=== PATIENT | female | born 1945 | race Caucasian/White ===

== ENCOUNTER 2020-09-21 00:41 | Observation (INO) | payer MEDICARE, OTHER ==
[~2020-09-21] VITALS: Ht 154.9 cm; Wt 58.7 kg
[~2020-09-21 00:41] MED LIST: ERGO400 PO; GLYCPS PR
[2020-09-21 01:07] LABS: BASOPHILS ABSOLUTE AUTO 0.05 K/mm3 (0.00-0.23); BASOPHILS PERCENT AUTO 0 % (0-2); EOSINOPHILS ABSOLUTE AUTO 0.06 K/mm3 (0.00-0.68); EOSINOPHILS PERCENT AUTO 1 % (0-6); Hematocrit 36.2 % (33.0-51.0); Hemoglobin 11.8 g/dL (11.5-16.0); IMMATURE GRAN ABSOLUTE AUTO 0.09 K/mm3 (0.00-0.10); IMMATURE GRAN PERCENT AUTO 1 % (0-1); LYMPHOCYTES PERCENT AUTO 6 % (21-46); MONOCYTES PERCENT AUTO 3 % (4-13); Mean Corpuscular HGB 29.6 pg (26.0-34.0); Mean Corpuscular HGB Conc 32.6 g/dL (31.5-36.5); Mean Corpuscular Volume 91 fL (80-100); Mean Platelet Volume 9.4 fL (9.1-12.4); NEUTROPHILS ABSOLUTE AUTO 10.55 K/mm3 (1.96-9.15); NEUTROPHILS PERCENT AUTO 89 % (41-73); Platelet Count 330 K/mm3 (150-400); RDW Standard Deviation 47.5 fL (35.1-46.3); Red Blood Cell Count 3.99 M/mm3 (3.80-5.20); White Blood Cell Count 11.85 K/mm3 (4.00-11.30)
[2020-09-21 01:30] LABS: Alanine Aminotransfer (ALT/SGP 20 U/L (12-78); Albumin, Blood 3.6 g/dL (3.4-5.0); Albumin/Globulin Ratio 1.2 (0.8-1.8); Alk Phos 39 U/L (50-136); Anion Gap 8 mmol/L (6-16); Aspartate Aminotrans (AST/SGOT 22 U/L (12-37); Blood Urea Nitrogen 16 mg/dL (8-24); Bun/Creatinine Ratio 22.3 (12.0-20.0); CO2, Blood 26 mmol/L (21-32); Chloride, Blood 106 mmol/L (98-108); Creatinine, Blood 0.72 mg/dL (0.40-1.00); Glomerular Filtration Rate >60 (60-); Glucose, Blood 152 mg/dL (70-99); Potassium, Blood 3.4 mmol/L (3.5-5.5); Sodium, Blood 140 mmol/L (136-145); Total Protein, Blood 6.6 g/dL (6.4-8.2); Troponin I <0.015 ng/mL (0.000-0.040)
[2020-09-21] MEDS ORDERED: THERA-D2000 UNIT PO (04:05)
[2020-09-21] MEDS ORDERED: Vitamin C100 M1 PO (04:06)
[2020-09-21] MEDS ORDERED: CYAN500 PO (04:06)
[2020-09-21] MEDS ORDERED: B-100 COMPLEX100 MG PO (04:07)
--- NOTE | 2020-09-21 04:30 | NUR ---
PT ADMITTED TO ROOM ICU 4 FROM EMERGENCY DEPARTMENT. ARRIVES AT 0340. SLIDE TRANSFERRED TO BED FROM [facility]. PT MAIN COMPLAINT IS THE HEMATOMA TO THE BACK OF HER HEAD SECONDARY TO HER FALL AT HOME. ALSO NECK AND BACK PAIN ASSOCIATED WITH FALL. PT IN SINUS RHYTHM WITHOUT NOTED ECTOPY. OF NOTE: ED PHYSICIAN HAS SPOKEN TO [employer] OPERATOR HELPER [employer] II ASSEMBLER. WILL PLACE CALL TO ANSWERING SERVICE. WILL REVIEW CHART AND PLAN OF CARE FOR THIS PT.
--- NOTE | 2020-09-21 06:33 | NUR ---
PT HAS NOT HAD ANY CARDIAC PAUSES OR BRADYCARDIA SINCE ADMIT. DID MEDICATE PT WITH 25 MCG FENTANYL FOR COMPLAINTS OF PAIN AT OCCIPITAL ASPECT OF HEAD, NECK AND SHOULDER PAIN FROM HER FALL AT HOME. NO COMPLAINTS OF NAUSEA. WAS ABLE TO TAKE HER PO POTASSIUM WITHOUT GI UPSET. HAS BEEN SLEEPING SINCE AFTER ADMISSION QUESTIONARE WAS COMPLETED. PT GOOD HISTORIAN. WILL CONTINUE TO MONITOR PT, AND WILL REPORT OFF TO ONCOMING RN.
--- NOTE | 2020-09-21 06:39 | NUR ---
PT STATED THAT SHE HAD RECEIVED HER SECOND DOSE OF COVID VACCINE ON 09-20-2020 AT 0800. PT STATED THAT SHE STARTED FEELING ILL JUST AFTERWARDS WHICH HAS LED HER TO HAVING TO COME TO THE HOSPITAL.
--- NOTE | 2020-09-21 07:30 | NUR ---
ASSUMED CARE OF PT AT THIS TIME. PT ALERT AND ORIENTED. NO EVIDENCE OF BRADYCARDIA AT THIS TIME. PT C/O NECK AND SHOULDER PAIN, REPOSITIONED FOR COMFORT. PT DENIES NEED FOR PAIN MEDICATION AT THIS TIME. DR ACEVEDO AT BEDSIDE, PLAN TO MONITOR PT FOR 24 HRS. NO PLAN FOR PACER PLACEMENT. WILL ENCOURAGE AMBULATION WITH STAND BY ASSIST. VSS. SEE SHIFT ASSESSMENT
[2020-09-21 08:36] LABS: Influenza A, PCR NEGATIVE (NEGATIVE); Influenza B, PCR NEGATIVE (NEGATIVE); Resp Syncytial Virus, PCR NEGATIVE (NEGATIVE); SARS-Cov-2 (COVID-19) PCR, MMC NEGATIVE (NEGATIVE)
--- NOTE | 2020-09-21 10:45 | NUR ---
DR MCKENZIE AT BEDSIDE. AFTER EVALUATION, DECIDED PT IS APPROPRIATE TO BE TRANSFERRED TO MEDICAL FLOOR FOR OBSERVATION. PT AND PT'S DAUGHTER UPDATED WITH PLAN OF CARE.
--- NOTE | 2020-09-21 13:00 | NUR ---
CARE COORDINATION REFERRAL - ADMIT: 09/21/20 DISCHARGE: DX: SYMPTOMATIC BRADYCARDIA CC: [facility] CALL: ([facility] 1-2 WEEKS) RESIDENCE: HOME CAREGIVER: FRANKI KENNY, CHILD, ELISE ALVARADO, CHILD, CLAIRE BROWN, FRIEND, DX: CAROTID ATHEROSCLEROSIS, HYPERLIPIDEMIA, VIT D DEFICIENCY, SEE LIST DME: NONE CCM: NONE HOME HEALTH: NONE SUMMARY: ADMIT: 09/21/20 09/21/20- PER CHART REVIEW WITH DR. MCKENZIE, PT IS DOING BETTER AND WILL BE MOVING TO THE MED/SURG FLOOR. FEEL THIS IS RELATED TO HER RECENT COVID VACCINE. SHE WILL BE STABLE FOR D/C ON THURSDAY.-MISSAEL
--- NOTE | 2020-09-21 14:55 | NUR ---
ASSUMED CARE REPORT RECEIVED FROM RADHA BRUNSON. PT SITTING UP IN CHAIR VISITING WITH DAUGHTER. HR NSR ON THE MONITOR. BP STABLE. PT DENIES ANY NEEDS AT THIS TIME. PT STATES HER NECK IS SORE AND THE BACK OF HER HEAD, BUT DENIES A NEED FOR ANY MEDICATION AT THIS TIME. CALL LIGHT IN REACH. WILL CONTINUE TO MONITOR CLOSELY.
--- NOTE | 2020-09-21 15:50 | NUR ---
THIS RN REVIEWED ALL MOTOR SCOOTER REPAIRER NOTES AND ASSESSMENTS AND AGREES WITH OBSERVATIONS
--- NOTE | 2020-09-21 16:54 | NUR ---
SHIFT SUMMARY PT ALERT AND ORIENTED. VS STABLE. HR REMAINS NSR. BP STABLE. PT CONTINUES TO COMPLAIN OF NECK AND BACK OF HEAD STIFFNESS, BUT DENIES A NEED FOR ANY MEDICATION. PT REPORTS PAIN HAS DECREASED SINCE SITTING UP IN RECLINER. PT ABLE TO AMBULATE TO COMMODE MULTIPLE TIMES THIS AFTERNOON WITHOUT ANY DIZZINESS AND MINIMAL ASSISTANCE. PT CALLING APPROPRIATELY. WILL CONTINUE TO MONITOR AND REPORT TO ONCOMING RN.
--- NOTE | 2020-09-21 18:10 | NUR ---
REPORT GIVEN TO ALTHEA BRUNSON. PT TO BE TAKEN UP BY HECTOR.
[2020-09-21 20:35] LABS: Source, Urine Clean Catch
[2020-09-21 20:39] LABS: Bilirubin, Urine Neg (Neg); Blood, Urine Neg (Neg); Glucose Qualitative, Urine Neg (Neg); Ketones, Urine Neg (Neg); Leukocyte Esterase, Urine 1+ (Neg); Nitrite, Urine Neg (Neg); Protein, Urine Neg (Neg); Specific Gravity, Urine 1.005 (1.003-1.022); Urobilinogen, Urine NORM (Normal)
[2020-09-21 20:55] LABS: Appearance, Urine Clear (Clear); Color, Urine Pale Yellow (P-Yellow)
[2020-09-21 20:56] LABS: Bacteria Few /hpf; Red Blood Cells, Urine 0-2 /hpf (0-2); Squamous Epithelial Cells Not Seen /hpf (Few)
--- NOTE | 2020-09-22 06:24 | NUR ---
SHIFT SUMMARY: PATIENT IS A&O X4, VSS. CONTINUES TO REPORT PAIN AT BACK OF HEAD AND NECK. ALTERNATING ZANAFLEX AND TYLENOL AND TORADOL WITH GOOD EFFECT. UP TO THE BATHROOM WITH ASSIST OF ONE. BED ALARM IS ON FOR SAFETY.
[2020-09-22] MEDS ORDERED: KETO10 PO (11:05)
[2020-09-22] MEDS ORDERED: TIZA4 PO (11:05)
--- NOTE | 2020-09-22 14:12 | NUR ---
PT AOX4 AND COOPERATIVE OF CARE. PT HAS HAD NO CARDIAC EVENTS AND IS DOING WELL. NECK PAIN TREATED PER EMAR. PT DISCHARGED WITH DAUGHTER TO TRANSPORT AT 1400. AID ESCORTED PT OUT TO N ENTRANCE. PT COOPERATIVE OF CARE AND WAS A STAND BY ASSIST TO RESTROOM. LACERATION ON BACK OF HEAD HAD NO DISCHARGE TODAY. PERSONAL BELONGINGS COLLECTED AND TAKEN WITH PT.
== END 2020-09-22 14:00 | disposition home or self-care (01) ==
LOC: ER 00:41 → ICUE 00:42 → ICUW 00:42 → ICUE 03:41 → MEDS 18:46
PROVIDERS: Emergency Medicine; Internal Medicine Interventional Cardiology; ADMIT Family Medicine
DX: I45.5 Other specified heart block (principal); R55 Syncope and collapse; R00.1 Bradycardia, unspecified; E87.6 Hypokalemia; S01.01XA Laceration without foreign body of scalp, initial encounter; M62.838 Other muscle spasm; D72.829 Elevated white blood cell count, unspecified; W18.30XA Fall on same level, unspecified, initial encounter; Z66 Do not resuscitate; Z20.822 Contact with and (suspected) exposure to COVID-19
CPT/HCPCS: 0241U; 70450; 71045; 72125; 80053; 81001; 84484; 85025; 87086; 93005; 93010; A9270; J0461; J1885; J2405; J2765; J3010; J7030

== ENCOUNTER → 2021-05-06 | Outpatient (CLI) | payer MEDICARE, OTHER ==
[~2021-05-06] MED LIST changes: +B-100 COMPLEX100 MG PO; +CYAN500 PO; +KETO10 PO; +THERA-D2000 UNIT PO; +TIZA4 PO; +Vitamin C100 M1 PO
== END ==
LOC: LAB 11:08 → LAB SHORT 11:08
DX: D48.5 Neoplasm of uncertain behavior of skin (principal); D22.61 Melanocytic nevi of right upper limb, including shoulder
CPT/HCPCS: 88305

== ENCOUNTER 2021-08-20 07:13 | Day surgery (SDC) | payer OTHER, MEDICARE ==
[~2021-08-20] VITALS: Ht 154.9 cm; Wt 55.2 kg
[~2021-08-20 07:13] MED LIST changes: +ASPI81CH PO; +ATOR40TA PO; +FAMO20 PO; +HYDR1TAB94 PO; +IBU600 M1 PO; +IBUP600 PO; +ONDA4ODT MM
--- NOTE | 2021-08-20 08:08 | NUR ---
08/20/21 0808 Sarah Benson CALL LIGHT WITHIN REACH
--- NOTE | 2021-08-20 12:02 | NUR ---
08/20/21 1202 ARABELLA KEATING PT HAS DROOP IN RIGHT EYE DUE TO CLAVICLE BLOCK DR CHO SAYS THIS IS NORMAL AND ROLANDO OFF WHEN BLOOCK WERS OFF IN A DAY OR SO. IMPOOVED SINCE SURGERY. NAUSEA IS RESOLVING
== END 2021-08-20 12:19 | disposition home or self-care (01) ==
LOC: ORSCSDS 07:13
PROVIDERS: Orthopaedic Surgery
PROC: 0RSG0ZZ Reposition Right Acromioclavicular Joint, Open Approach (ICD-10-PCS; principal; 2021-08-20 08:30)
PROC: 0PS904Z Reposition Right Clavicle with Internal Fixation Device, Open Approach (ICD-10-PCS; principal; 2021-08-20 08:30)
DX: S42.031 Displaced fracture of lateral end of right clavicle (principal); S43.51XA Sprain of right acromioclavicular joint, initial encounter; V49.9XXA Car occupant (driver) (passenger) injured in unspecified traffic accident, initial encounter; K21.9 Gastro-esophageal reflux disease without esophagitis; Z79.899 Other long term (current) drug therapy
CPT/HCPCS: C1713; J0171; J0690; J1100; J1885; J2250; J2405; J2704; J2765; J2795; J3010; J7120

== ENCOUNTER → 2024-05-21 | Outpatient (CLI) | payer MEDICARE, OTHER ==
[2024-05-21 10:37] LABS: BASOPHILS ABSOLUTE AUTO 0.02 K/mm3 (0.00-0.23); BASOPHILS PERCENT AUTO 1 % (0-2); EOSINOPHILS ABSOLUTE AUTO 0.01 K/mm3 (0.00-0.68); EOSINOPHILS PERCENT AUTO 0 % (0-6); Hematocrit 42.7 % (33.0-51.0); Hemoglobin 13.8 g/dL (11.5-16.0); IMMATURE GRAN ABSOLUTE AUTO 0.01 K/mm3 (0.00-0.10); IMMATURE GRAN PERCENT AUTO 0 % (0-1); LYMPHOCYTES ABSOLUTE AUTO 0.77 K/mm3 (0.84-5.20); LYMPHOCYTES PERCENT AUTO 25 % (21-46); MONOCYTES ABSOLUTE AUTO 0.41 K/mm3 (0.16-1.47); MONOCYTES PERCENT AUTO 13 % (4-13); Mean Corpuscular HGB 29.4 pg (26.0-34.0); Mean Corpuscular HGB Conc 32.3 g/dL (31.5-36.5); Mean Corpuscular Volume 91 fL (80-100); Mean Platelet Volume 9.1 fL (9.1-12.4); NEUTROPHILS ABSOLUTE AUTO 1.83 K/mm3 (1.96-9.15); NEUTROPHILS PERCENT AUTO 60 % (41-73); Platelet Count 320 K/mm3 (150-400); RDW Coefficient Variation 14.6 % (11.7-14.2); RDW Standard Deviation 48.6 fL (35.1-46.3); Red Blood Cell Count 4.69 M/mm3 (3.80-5.20); White Blood Cell Count 3.05 K/mm3 (4.00-11.30)
[2024-05-21 10:42] LABS: Bun/Creatinine Ratio 17.9 (12.0-20.0); Calcium, Blood 8.9 mg/dL (8.5-10.1); Creatinine, Blood 0.84 mg/dL (0.40-1.00); Potassium, Blood 4.2 mmol/L (3.5-5.5)
== END | disposition home or self-care (01) ==
LOC: LAB 10:32 → LAB SHORT 10:32
PROVIDERS: Physician Assistant Surgical
DX: R53.1 Weakness (principal)
CPT/HCPCS: 80048; 85025

== ENCOUNTER → 2024-07-24 | Outpatient (CLI) | payer MEDICARE, OTHER | LOC: LAB SHORT 16:21 → LAB 16:21 | DX: R30.0 Dysuria (principal) | CPT/HCPCS: 87086 ==